=== PATIENT | male | born 1960 | race Caucasian/White ===

== ENCOUNTER 2017-12-28 02:40 | Day surgery (SDC) | payer OTHER ==
[~2017-12-28] VITALS: Ht 177.8 cm; Wt 63.0 kg
[~2017-12-28 02:40] MED LIST: AMOX500T10 PO; ATOR10TA24 PO; CAR6.25 PO; CARV25TA78 PO; CHOL10005 PO; CLAR-1 PO; FOLI-68 PO; LOSA100T67 PO; MULT1TAB64 PO; NO HOME MEDICATIONS; PANT40TA65 PO
[2017-12-28 06:22] VITALS: BP 136/77
[2017-12-28] MEDS ORDERED: NORMOSOL R SOLN(*) 1000 ML BAG 1,000 ML IV PRN (06:30)
[2017-12-28] MEDS ORDERED: LIDOCAINE/SOD BICARB 8.4% SYR ID ONE (06:30)
[2017-12-28] MEDS ORDERED: PROPOFOL EMUL(*) 10MG/ML 20 ML 60 ML ONE (07:14)
[2017-12-28] MEDS ORDERED: LIDOCAINE MPF 1% 5 ML VIAL ONE (07:14)
[2017-12-28 08:50] VITALS: BP 92/60
[2017-12-28] MEDS ORDERED: PANT20TA27 PO (08:51)
--- NOTE | 2017-12-28 08:53 | Short(Outpt) Discharge Summary ---
Discharge Summary Reason for Hosp/Final Diag: (1) Esophagitis Status: Chronic Hospital Course & Plan: EGD with pyloritek completed without problems. (2) Peptic ulcer disease Status: Chronic Departure Discharge to: Home, Self Care Discharge Instructions Home Meds Active Scripts Pantoprazole Sodium (PANTOPRAZOLE SODIUM) 20 Mg Tablet.dr, 1 TAB PO DAILY, #60 TAB 3 Refills Prov:DENISE ALMANZA MD 12/28/17 Pantoprazole Sodium (PANTOPRAZOLE SODIUM) 40 Mg Tablet.dr, 1 TAB PO QDAY, #60 TAB 3 Refills Prov:DENISE ALMANZA MD 10/18/17 Reported Medications Atorvastatin Calcium (LIPITOR) 10 Mg Tablet, 1 TAB PO QDAY, TAB 12/23/17 Cholecalciferol (Vitamin D3) (VITAMIN D3) 1,000 Unit Tablet, 1000 UNIT PO, TAB 12/23/17 Carvedilol (CARVEDILOL) 6.25 Mg Tab, 6.25 MG PO BID, TAB 06/20/17 Multivitamin (MULTI VITAMIN DAILY) 1 Each Tablet, 1 EACH PO QDAY, TAB 05/31/17 Folic Acid (FOLIC ACID) Unknown Strength Tablet, PO QDAY, TAB 05/31/17 Losartan Potassium (LOSARTAN POTASSIUM) 100 Mg Tablet, 100 MG PO QDAY 05/31/17 Discontinued Scripts Clarithromycin (CLARITHROMYCIN) 500 Mg Tablet, 1 TAB PO BID, #30 TAB 0 Refills Prov:DENISE ALMANZA MD 06/22/17 Amoxicillin 500 Mg Tab (AMOXICILLIN 500 MG TAB) 500 Mg Tablet, 2 TAB PO Q12H, # 60 TAB 0 Refills Prov:DENISE ALMANZA MD 06/22/17 Diet: Regular Activity: As Tolerated Special Instructions: Your endoscopy looked great. The ulcers and inflammation have resolved. I recommend that you begin taking pantoprazole, 20mg once every day. You can cut your 40 mg tablets in half so you don't have to waste them but I've also provided a prescription for 20mg tablets. I performed biopsies to ensure the H.pylori is gone and my office will call you with these results. DENISE ALMANZA MD Dec 28, 2017 08:53
[2017-12-28 09:26] VITALS: BP 108/84
[2017-12-28 09:31] VITALS: BP 110/62
== END 2017-12-28 10:51 | disposition home or self-care (01) ==
LOC: OR 02:40
PROVIDERS: ATTEND Surgery
DX: A04.8 Other specified bacterial intestinal infections (principal)
CPT/HCPCS: 43239; 87077; J2001; J2704